=== PATIENT | female | born 1990 | race Two or more races ===

== ENCOUNTER 2022-05-06 05:36 | Emergency (ER) | payer BC ==
[2022-05-06] MEDS ORDERED: Ondansetron 4 MG Tab.DIS PO ONE (05:58)
[2022-05-06] MEDS: Loperamide 2 MG Cap PO STA ×2 (06:05→06:10)
[2022-05-06] MEDS ORDERED: Loperamide 2 MG Cap PO STA (06:52)
== END 2022-05-06 07:07 | disposition home or self-care (01) ==
LOC: JD.ED 05:36
DX: A08.4 Viral intestinal infection, unspecified (principal); Z20.822 Contact with and (suspected) exposure to COVID-19; Z86.16 Personal history of COVID-19
CPT/HCPCS: 87635; 99284; A9270; 99282; U0002